=== PATIENT | female | born 1940 | race Caucasian/White ===

== ENCOUNTER 2017-03-25 12:57 | Inpatient (IN) | payer OTHER ==
[~2017-03-25] VITALS: Ht 162.6 cm; Wt 109.0 kg
[~2017-03-25 12:57] MED LIST: FUROSEMIDE20 MG PO; LEVAQUIN500 MG PO; LO-DOSE ASPIRIN81 M1 PO; MOTRIN600 MG PO; PREDNISONE10 MG PO; SYSTANE LIQUID15 ML BOTH EYES; VIBRAMYCIN100 MG PO
[2017-03-25] MEDS ORDERED: PROAIR HFA8.5 GM IH (13:46)
[2017-03-25] MEDS ORDERED: VALSARTAN-HCTZ1 EACH PO (13:46)
[2017-03-25] MEDS ORDERED: FLOVENT 22120 INHALA IH (13:47)
[2017-03-25] MEDS ORDERED: MOTRIN600 MG PO (13:50)
[2017-03-25] MEDS ORDERED: PREDNISONE10 M1 PO (13:50)
[2017-03-25] MEDS ORDERED: KEFLEX500 MG PO (13:50)
[2017-03-25 14:18] LABS: EOSINOPHIL (%) 0.6 % (0-5); EOSINOPHIL COUNT 0.1 K/uL (0-0.3); HEMATOCRIT 47.3 % (36.0-46.0); IMMATURE GRANULOCYTE (%) 0.7 % (0.0-0.7); IMMATURE GRANULOCYTE COUNT 0.1 K/uL; LYMPHOCYTE COUNT 0.3 K/uL (1.0-2.8); MCH 27.5 PG (29.0-34.0); MCHC 34.5 G/DL (30.0-36.0); MCV 79.8 FL (83-99); MEAN PLAT.VOLUME 8.6 uM^3 (9.5-12.4); MONOCYTE (%) 6.9 % (3-12); MONOCYTE COUNT 0.8 K/uL (0-0.8); NEUTROPHIL (%) 88.8 % (45-76); PLATELET COUNT 246 K/uL (156-360); RBC DIS.WIDTH-CV 13.4 % (11.8-14.6); RBC DIS.WIDTH-SD 38.9 % (39-53); RED BLOOD COUNT 5.93 M/uL (3.80-5.20); WHITE BLOOD COUNT 11.2 K/uL (4.1-10.2)
[2017-03-25 14:32] LABS: INTER. NORMALIZED RATIO 1.1
[2017-03-25 14:35] LABS: PTT 32.2 SEC (25-37)
[2017-03-25 14:44] LABS: TROP-I INTERPRETATION NEGATIVE; TROPONIN-I 0.02 ng/mL (0.0-0.30)
[2017-03-25 15:05] LABS: CHLORIDE 80 mEq/L (99-109); POTASSIUM 4.6 mEq/L (3.7-5.4); SODIUM 121 mEq/L (136-147)
[2017-03-25 15:08] LABS: GLUCOSE 103 mg/dL (70-99)
[2017-03-25 15:09] LABS: ANION GAP 12 MEQ/L (2-14)
[2017-03-25 15:10] LABS: TOTAL BILIRUBIN 1.9 mg/dL (0.0-1.0)
[2017-03-25 15:11] LABS: ALKALINE PHOSPHATASE 95 IU/L (3-129); GFR ESTIMATE (CALCULATED) > 59 mL/min/
[2017-03-25 15:13] LABS: UREA NITROGEN (BUN) 9 mg/dL (9-23)
[2017-03-25 15:15] LABS: LIPASE 6 U/L (1.0-51.0)
[2017-03-25 15:32] LABS: BASE EXCESS 3.8 mEq/L (-3 to +3); BICARBONATE 34.1 mEq/L (22-26); CARBOXY HGB 2.5 % (0-5); METHEMOGLOBIN 1.1 % (0-1.5); PCO2 76 mm Hg (35-45); PO2 92 mm Hg (80-100)
[2017-03-25 15:33] LABS: COMMENTS - BLOOD GASES A+C+; DEVICE NCH; O2 FLOW 10 L/MIN; SITE RR; TOTAL RESP RATE 16 resp/min; pH 7.26 (7.35-7.45)
[2017-03-25 16:19] LABS: ADD MIUA? YES; BILIRUBIN NEGATIVE; BLOOD SMALL; COLOR AMBER ((YELLOW)); GLUCOSE (STRIP) NEGATIVE; KETONES 80; LEUKOCYTES NEGATIVE; NITRITE NEGATIVE; PROTEIN (STRIP) >=500
[2017-03-25 16:26] LABS: BACTERIA NONE SEEN /HPF; EPITHELIAL CELLS RARE /HPF; MUCUS 4+ /LPF; RED BLOOD CELLS 0-5 /HPF (0-5); UCUL ADDED? NO; WHITE BLOOD CELLS 0-5 /HPF (0-5)
[2017-03-25 18:26] VITALS: BP 131/70
[2017-03-25 19:00] VITALS: BP 132/65
[2017-03-25 20:20] LABS: ANION GAP 8 MEQ/L (2-14); CHLORIDE 78 MEQ/L (99-109); GFR ESTIMATE (CALCULATED) > 59 mL/min/; GLUCOSE 160 mg/dL (70-99); POTASSIUM 4.5 MEQ/L (3.7-5.4); SAMPLE HEMOLYSIS CHECK 0; SAMPLE ICTERIC CHECK 0; SAMPLE LIPEMIA CHECK 0; UREA NITROGEN (BUN) 12 mg/dL (9-23)
[2017-03-25 20:21] LABS: SODIUM 116 MEQ/L (136-147)
[2017-03-25 23:37] VITALS: BP 140/61
[2017-03-26] VITALS (20 sets, daily range): BP systolic 71–166; BP diastolic 34–83
[2017-03-26 02:28] LABS: CHLORIDE 88 mEq/L (99-109); POTASSIUM 4.2 mEq/L (3.7-5.4)
[2017-03-26 02:30] LABS: GLUCOSE 127 mg/dL (70-99)
[2017-03-26 02:31] LABS: ANION GAP 9 MEQ/L (2-14)
[2017-03-26 02:34] LABS: GFR ESTIMATE (CALCULATED) > 59 mL/min/
[2017-03-26 02:35] LABS: UREA NITROGEN (BUN) 12 mg/dL (9-23)
[2017-03-26 02:36] LABS: SODIUM 123 mEq/L (136-147)
[2017-03-26 05:48] LABS: EOSINOPHIL (%) 0 % (0-5); HEMATOCRIT 45.1 % (36.0-46.0); IMMATURE GRANULOCYTE (%) 0.5 % (0.0-0.7); IMMATURE GRANULOCYTE COUNT 0.1 K/uL; INSTRUMENT ABS NEUTROPHIL CT 9.8 K/uL; LYMPHOCYTE COUNT 0.2 K/uL (1.0-2.8); MCH 28.8 PG (29.0-34.0); MCHC 35.9 G/DL (30.0-36.0); MCV 80.2 FL (83-99); MONOCYTE (%) 2.1 % (3-12); MONOCYTE COUNT 0.2 K/uL (0-0.8); NEUTROPHIL (%) 95.1 % (45-76); NEUTROPHIL COUNT 9.8 K/uL (1.8-6.4); PLATELET COUNT 244 K/uL (156-360); RBC DIS.WIDTH-CV 13.4 % (11.8-14.6); RBC DIS.WIDTH-SD 39.2 % (39-53); RED BLOOD COUNT 5.62 M/uL (3.80-5.20); WHITE BLOOD COUNT 10.3 K/uL (4.1-10.2)
[2017-03-26 06:23] LABS: ALKALINE PHOSPHATASE 91 IU/L (3-129); ANION GAP 8 MEQ/L (2-14); CHLORIDE 80 MEQ/L (99-109); DIRECT BILIRUBIN 0.5 mg/dL (0.0-0.3); GFR ESTIMATE (CALCULATED) > 59 mL/min/; GLUCOSE 126 mg/dL (70-99); POTASSIUM 4.9 MEQ/L (3.7-5.4); SAMPLE HEMOLYSIS CHECK 0; SAMPLE ICTERIC CHECK 0; SAMPLE LIPEMIA CHECK 0; TOTAL BILIRUBIN 1.3 MG/DL (0.0-1.0); UREA NITROGEN (BUN) 14 mg/dL (9-23)
[2017-03-26 06:28] LABS: SODIUM 119 MEQ/L (136-147)
[2017-03-26 08:13] LABS: INTERNAL CONTROL VALID? YES
[2017-03-26 09:07] LABS: BASE EXCESS 1.4 mEq/L (-3 to +3); BICARBONATE 36.7 mEq/L (22-26); CARBOXY HGB 1.9 % (0-5); METHEMOGLOBIN 1.3 % (0-1.5); PCO2 121 mm Hg (35-45); PO2 60 mm Hg (80-100)
[2017-03-26 09:08] LABS: COMMENTS - BLOOD GASES AC+; DEVICE NRBM; FI02 100 %; SITE RR; TOTAL RESP RATE 30 resp/min; pH 7.09 (7.35-7.45)
[2017-03-26 10:05] LABS: INTERNAL CONTROL VALID? YES
[2017-03-26 10:25] LABS: BASE EXCESS 0 mEq/L (-3 to +3); BICARBONATE 32.7 mEq/L (22-26); CARBOXY HGB 1.9 % (0-5); METHEMOGLOBIN 1.7 % (0-1.5); PCO2 94 mm Hg (35-45); PO2 88 mm Hg (80-100); pH 7.15 (7.35-7.45)
[2017-03-26 10:26] LABS: COMMENTS - BLOOD GASES NAC+; SITE RR
[2017-03-26 10:27] LABS: CONTINUOUS POS AIRWAY PRESSURE 5 cm H2O; DEVICE 980; FI02 60 %; MODE SPONT NIV; PRES. SUPPORT 20 CM/H2O; TOTAL RESP RATE 29 resp/min
[2017-03-26 10:33] LABS: ADD MIUA? YES; BILIRUBIN NEGATIVE; BLOOD NEGATIVE; COLOR YELLOW ((YELLOW)); GLUCOSE (STRIP) NEGATIVE; KETONES 5; LEUKOCYTES NEGATIVE; NITRITE NEGATIVE; PROTEIN (STRIP) 100; SPECIFIC GRAVITY 1.017 (1.000-1.030)
[2017-03-26 10:38] LABS: METH RESISTANT S AUREUS PCR NEGATIVE (NEGATIVE); PROBE CHECK PASS; SPECIMEN PROCESSING CONTROL PASS
[2017-03-26 10:44] LABS: BACTERIA NONE SEEN /HPF; EPITHELIAL CELLS RARE /HPF; MUCUS TRACE /LPF; RED BLOOD CELLS 0-5 /HPF (0-5); UCUL ADDED? NO; UNCLASSIFIED CASTS 0-5 /LPF; WHITE BLOOD CELLS 0-5 /HPF (0-5)
[2017-03-26 12:27] LABS: BICARBONATE 27.3 mEq/L (22-26); CARBOXY HGB 2.4 % (0-5); METHEMOGLOBIN 1.6 % (0-1.5)
[2017-03-26 12:28] LABS: COMMENTS - BLOOD GASES NAC+; DEVICE 980; FI02 30 %; MECHANICAL RATE 20 resp/min; MODE A/C; PCO2 44 mm Hg (35-45); PO2 70 mm Hg (80-100); SITE RR; TOTAL RESP RATE 22 resp/min
[2017-03-26 12:29] LABS: INSPIRATION TIME 0.8 seconds; PEEP 5 CM/H20; TIDAL VOLUME 450 ML
[2017-03-26 13:35] LABS: ANION GAP 12 MEQ/L (2-14); CHLORIDE 81 MEQ/L (99-109); GFR ESTIMATE (CALCULATED) > 59 mL/min/; POTASSIUM 4.8 MEQ/L (3.7-5.4); SAMPLE HEMOLYSIS CHECK 1; SAMPLE ICTERIC CHECK 0; SAMPLE LIPEMIA CHECK 0; UREA NITROGEN (BUN) 20 mg/dL (9-23)
[2017-03-26 13:37] LABS: GLUCOSE 224 mg/dL (70-99)
[2017-03-26 13:38] LABS: SODIUM 117 MEQ/L (136-147)
[2017-03-26 16:47] LABS: ANION GAP 10 MEQ/L (2-14); CHLORIDE 87 MEQ/L (99-109); GFR ESTIMATE (CALCULATED) > 59 mL/min/; GLUCOSE 161 mg/dL (70-99); SAMPLE HEMOLYSIS CHECK 0; SAMPLE ICTERIC CHECK 0; SAMPLE LIPEMIA CHECK 0; SODIUM 122 MEQ/L (136-147); UREA NITROGEN (BUN) 20 mg/dL (9-23)
[2017-03-26 20:51] LABS: ANION GAP 9 MEQ/L (2-14); CHLORIDE 89 MEQ/L (99-109); GFR ESTIMATE (CALCULATED) > 59 mL/min/; GLUCOSE 140 mg/dL (70-99); POTASSIUM 4.3 MEQ/L (3.7-5.4); SAMPLE HEMOLYSIS CHECK 0; SAMPLE ICTERIC CHECK 0; SAMPLE LIPEMIA CHECK 0; SODIUM 123 MEQ/L (136-147); UREA NITROGEN (BUN) 18 mg/dL (9-23)
[2017-03-26 23:40] LABS: CHLORIDE 90 mEq/L (99-109); POTASSIUM 4.3 mEq/L (3.7-5.4); SODIUM 123 mEq/L (136-147)
[2017-03-26 23:42] LABS: GLUCOSE 151 mg/dL (70-99)
[2017-03-26 23:44] LABS: ANION GAP 8 MEQ/L (2-14)
[2017-03-26 23:46] LABS: GFR ESTIMATE (CALCULATED) > 59 mL/min/
[2017-03-26 23:47] LABS: UREA NITROGEN (BUN) 18 mg/dL (9-23)
[2017-03-27] VITALS (23 sets, daily range): BP systolic 97–133; BP diastolic 43–70
[2017-03-27 03:02] LABS: CHLORIDE 91 mEq/L (99-109); POTASSIUM 4.5 mEq/L (3.7-5.4); SODIUM 125 mEq/L (136-147)
[2017-03-27 03:04] LABS: GLUCOSE 151 mg/dL (70-99)
[2017-03-27 03:06] LABS: ANION GAP 10 MEQ/L (2-14)
[2017-03-27 03:08] LABS: GFR ESTIMATE (CALCULATED) > 59 mL/min/
[2017-03-27 03:09] LABS: UREA NITROGEN (BUN) 18 mg/dL (9-23)
[2017-03-27 05:17] LABS: CHLORIDE 92 mEq/L (99-109); POTASSIUM 4.2 mEq/L (3.7-5.4); SODIUM 126 mEq/L (136-147)
[2017-03-27 05:18] LABS: GLUCOSE 150 mg/dL (70-99)
[2017-03-27 05:20] LABS: ANION GAP 10 MEQ/L (2-14)
[2017-03-27 05:22] LABS: GFR ESTIMATE (CALCULATED) > 59 mL/min/
[2017-03-27 05:23] LABS: UREA NITROGEN (BUN) 19 mg/dL (9-23)
[2017-03-27 09:15] LABS: ANION GAP 9 MEQ/L (2-14); CHLORIDE 93 MEQ/L (99-109); GFR ESTIMATE (CALCULATED) > 59 mL/min/; GLUCOSE 147 mg/dL (70-99); SAMPLE HEMOLYSIS CHECK 0; SAMPLE ICTERIC CHECK 0; SAMPLE LIPEMIA CHECK 0; SODIUM 125 MEQ/L (136-147); UREA NITROGEN (BUN) 19 mg/dL (9-23)
[2017-03-27 11:47] LABS: HEMATOCRIT 38.8 % (36.0-46.0); MCH 27.7 PG (29.0-34.0); MCHC 35.3 G/DL (30.0-36.0); MCV 78.4 FL (83-99); MEAN PLAT.VOLUME 9.1 uM^3 (9.5-12.4); PLATELET COUNT 176 K/uL (156-360); RBC DIS.WIDTH-CV 13.5 % (11.8-14.6); RBC DIS.WIDTH-SD 38.5 % (39-53); RED BLOOD COUNT 4.95 M/uL (3.80-5.20); WHITE BLOOD COUNT 7.7 K/uL (4.1-10.2)
[2017-03-27 13:10] LABS: ANION GAP 10 MEQ/L (2-14); CHLORIDE 92 MEQ/L (99-109); GFR ESTIMATE (CALCULATED) > 59 mL/min/; GLUCOSE 174 mg/dL (70-99); SAMPLE HEMOLYSIS CHECK 0; SAMPLE ICTERIC CHECK 0; SAMPLE LIPEMIA CHECK 0; SODIUM 125 MEQ/L (136-147); UREA NITROGEN (BUN) 19 mg/dL (9-23)
[2017-03-27 16:03] LABS: ANION GAP 6 MEQ/L (2-14); CHLORIDE 91 MEQ/L (99-109); GFR ESTIMATE (CALCULATED) > 59 mL/min/; GLUCOSE 154 mg/dL (70-99); POTASSIUM 3.8 MEQ/L (3.7-5.4); SAMPLE HEMOLYSIS CHECK 0; SAMPLE ICTERIC CHECK 0; SAMPLE LIPEMIA CHECK 0; SODIUM 124 MEQ/L (136-147); UREA NITROGEN (BUN) 18 mg/dL (9-23)
[2017-03-27 20:27] LABS: ANION GAP 9 MEQ/L (2-14); CHLORIDE 94 MEQ/L (99-109); GFR ESTIMATE (CALCULATED) > 59 mL/min/; GLUCOSE 155 mg/dL (70-99); POTASSIUM 3.8 MEQ/L (3.7-5.4); SAMPLE HEMOLYSIS CHECK 0; SAMPLE ICTERIC CHECK 0; SAMPLE LIPEMIA CHECK 0; SODIUM 127 MEQ/L (136-147); UREA NITROGEN (BUN) 18 mg/dL (9-23)
[2017-03-28] VITALS (18 sets, daily range): BP systolic 121–167; BP diastolic 59–102
[2017-03-28 00:50] LABS: CHLORIDE 96 mEq/L (99-109); SODIUM 130 mEq/L (136-147)
[2017-03-28 00:51] LABS: GLUCOSE 155 mg/dL (70-99)
[2017-03-28 00:53] LABS: ANION GAP 10 MEQ/L (2-14)
[2017-03-28 00:55] LABS: GFR ESTIMATE (CALCULATED) > 59 mL/min/
[2017-03-28 00:56] LABS: UREA NITROGEN (BUN) 16 mg/dL (9-23)
[2017-03-28 05:58] LABS: ANION GAP 9 MEQ/L (2-14); CHLORIDE 96 MEQ/L (99-109); GFR ESTIMATE (CALCULATED) > 59 mL/min/; GLUCOSE 145 mg/dL (70-99); SAMPLE HEMOLYSIS CHECK 0; SAMPLE ICTERIC CHECK 0; SAMPLE LIPEMIA CHECK 0; SODIUM 128 MEQ/L (136-147); UREA NITROGEN (BUN) 17 mg/dL (9-23)
[2017-03-28 08:43] LABS: ANION GAP 8 MEQ/L (2-14); CHLORIDE 97 MEQ/L (99-109); POTASSIUM 4.1 MEQ/L (3.7-5.4); SAMPLE HEMOLYSIS CHECK 0; SAMPLE ICTERIC CHECK 0; SAMPLE LIPEMIA CHECK 0; SODIUM 129 MEQ/L (136-147)
[2017-03-28 08:49] LABS: GFR ESTIMATE (CALCULATED) > 59 mL/min/; GLUCOSE 147 mg/dL (70-99); UREA NITROGEN (BUN) 18 mg/dL (9-23)
[2017-03-28 13:15] LABS: ANION GAP 10 MEQ/L (2-14); CHLORIDE 97 MEQ/L (99-109); SAMPLE HEMOLYSIS CHECK 0; SAMPLE ICTERIC CHECK 0; SAMPLE LIPEMIA CHECK 0; SODIUM 131 MEQ/L (136-147)
[2017-03-28 13:20] LABS: GFR ESTIMATE (CALCULATED) > 59 mL/min/; GLUCOSE 147 mg/dL (70-99); UREA NITROGEN (BUN) 17 mg/dL (9-23)
[2017-03-29] VITALS (7 sets, daily range): BP systolic 116–161; BP diastolic 49–96
[2017-03-29 06:42] LABS: HEMATOCRIT 45.3 % (36.0-46.0); MCH 28.1 PG (29.0-34.0); MCHC 33.3 G/DL (30.0-36.0); MEAN PLAT.VOLUME 8.8 uM^3 (9.5-12.4); RBC DIS.WIDTH-CV 14.2 % (11.8-14.6); RBC DIS.WIDTH-SD 43.2 % (39-53); RED BLOOD COUNT 5.37 M/uL (3.80-5.20); WHITE BLOOD COUNT 9.2 K/uL (4.1-10.2)
[2017-03-29 06:47] LABS: MCV 84.4 FL (83-99); PLATELET COUNT 231 K/uL (156-360)
[2017-03-29 07:07] LABS: ANION GAP 7 MEQ/L (2-14); CHLORIDE 101 MEQ/L (99-109); GFR ESTIMATE (CALCULATED) > 59 mL/min/; GLUCOSE 117 mg/dL (70-99); POTASSIUM 4.5 MEQ/L (3.7-5.4); SAMPLE HEMOLYSIS CHECK 0; SAMPLE ICTERIC CHECK 0; SAMPLE LIPEMIA CHECK 0; SODIUM 137 MEQ/L (136-147); UREA NITROGEN (BUN) 15 mg/dL (9-23)
[2017-03-30] VITALS (7 sets, daily range): BP systolic 136–153; BP diastolic 63–76
[2017-03-30 07:03] LABS: ANION GAP 7 MEQ/L (2-14); CHLORIDE 99 MEQ/L (99-109); GFR ESTIMATE (CALCULATED) > 59 mL/min/; GLUCOSE 114 mg/dL (70-99); POTASSIUM 4.4 MEQ/L (3.7-5.4); SAMPLE HEMOLYSIS CHECK 0; SAMPLE ICTERIC CHECK 0; SAMPLE LIPEMIA CHECK 0; SODIUM 137 MEQ/L (136-147); UREA NITROGEN (BUN) 21 mg/dL (9-23)
[2017-03-30 07:05] LABS: HEMATOCRIT 47.9 % (36.0-46.0); MCHC 32.2 G/DL (30.0-36.0); MCV 83.9 FL (83-99); MEAN PLAT.VOLUME 9.2 uM^3 (9.5-12.4); PLATELET COUNT 220 K/uL (156-360); RBC DIS.WIDTH-SD 42.8 % (39-53); RED BLOOD COUNT 5.71 M/uL (3.80-5.20); WHITE BLOOD COUNT 7.7 K/uL (4.1-10.2)
[2017-03-31] VITALS (7 sets, daily range): BP systolic 136–180; BP diastolic 63–88
[2017-03-31 05:58] LABS: POINT-OF-CARE METER ID UU14188577
[2017-03-31 06:00] LABS: MCH 27.3 PG (29.0-34.0); MCHC 32.2 G/DL (30.0-36.0); MCV 84.9 FL (83-99); MEAN PLAT.VOLUME 8.3 uM^3 (9.5-12.4); PLATELET COUNT 243 K/uL (156-360); RBC DIS.WIDTH-CV 13.7 % (11.8-14.6); RBC DIS.WIDTH-SD 42.5 % (39-53); RED BLOOD COUNT 6.01 M/uL (3.80-5.20)
[2017-03-31 06:17] LABS: CHLORIDE 95 mEq/L (99-109); SODIUM 142 mEq/L (136-147)
[2017-03-31 06:19] LABS: GLUCOSE 102 mg/dL (70-99)
[2017-03-31 06:20] LABS: ANION GAP 12 MEQ/L (2-14)
[2017-03-31 06:23] LABS: GFR ESTIMATE (CALCULATED) > 59 mL/min/
[2017-03-31 06:24] LABS: UREA NITROGEN (BUN) 27 mg/dL (9-23)
[2017-03-31 06:26] LABS: ALKALINE PHOSPHATASE 63 IU/L (3-129); POTASSIUM 3.5 mEq/L (3.7-5.4); TOTAL BILIRUBIN 1.3 mg/dL (0.0-1.0)
[2017-03-31 06:37] LABS: TROP-I INTERPRETATION NEGATIVE; TROPONIN-I 0.04 ng/mL (0.0-0.30)
[2017-03-31 06:56] LABS: INTER. NORMALIZED RATIO 1.1
[2017-03-31 06:58] LABS: PTT 32.9 SEC (25-37)
[2017-04-01 03:31] VITALS: BP 165/75
[2017-04-01 05:46] LABS: HEMATOCRIT 50.3 % (36.0-46.0); MCH 28.2 PG (29.0-34.0); MCHC 32.8 G/DL (30.0-36.0); MCV 85.8 FL (83-99); MEAN PLAT.VOLUME 8.6 uM^3 (9.5-12.4); PLATELET COUNT 193 K/uL (156-360); RBC DIS.WIDTH-CV 13.7 % (11.8-14.6); RBC DIS.WIDTH-SD 42.9 % (39-53); RED BLOOD COUNT 5.86 M/uL (3.80-5.20); WHITE BLOOD COUNT 8.6 K/uL (4.1-10.2)
[2017-04-01 06:13] LABS: ANION GAP 8 MEQ/L (2-14); CHLORIDE 95 MEQ/L (99-109); GFR ESTIMATE (CALCULATED) > 59 mL/min/; GLUCOSE 135 mg/dL (70-99); POTASSIUM 3.7 MEQ/L (3.7-5.4); SAMPLE HEMOLYSIS CHECK 0; SAMPLE ICTERIC CHECK 0; SAMPLE LIPEMIA CHECK 0; SODIUM 139 MEQ/L (136-147); UREA NITROGEN (BUN) 29 mg/dL (9-23)
[2017-04-01 07:00] VITALS: BP 143/65
[2017-04-01 11:54] VITALS: BP 138/65
[2017-04-01 15:08] VITALS: BP 149/65
[2017-04-01 20:00] VITALS: BP 143/63
[2017-04-01 23:55] VITALS: BP 158/69
[2017-04-02 04:00] VITALS: BP 156/70
[2017-04-02 07:22] VITALS: BP 150/65
[2017-04-02 11:36] VITALS: BP 145/67
[2017-04-02 15:42] VITALS: BP 128/66
[2017-04-02 19:05] VITALS: BP 143/65
[2017-04-03 00:16] VITALS: BP 141/65
[2017-04-03 04:16] VITALS: BP 136/62
[2017-04-03 05:28] LABS: EOSINOPHIL (%) 0 % (0-5); HEMATOCRIT 50.2 % (36.0-46.0); IMMATURE GRANULOCYTE COUNT 0.1 K/uL; INSTRUMENT ABS NEUTROPHIL CT 11.6 K/uL; LYMPHOCYTE COUNT 0.3 K/uL (1.0-2.8); MCHC 31.3 G/DL (30.0-36.0); MCV 86.3 FL (83-99); MEAN PLAT.VOLUME 8.8 uM^3 (9.5-12.4); MONOCYTE (%) 3.4 % (3-12); MONOCYTE COUNT 0.4 K/uL (0-0.8); NEUTROPHIL (%) 92.9 % (45-76); NEUTROPHIL COUNT 11.6 K/uL (1.8-6.4); PLATELET COUNT 191 K/uL (156-360); RBC DIS.WIDTH-CV 13.3 % (11.8-14.6); RBC DIS.WIDTH-SD 41.8 % (39-53); RED BLOOD COUNT 5.82 M/uL (3.80-5.20); WHITE BLOOD COUNT 12.5 K/uL (4.1-10.2)
[2017-04-03 05:50] LABS: ANION GAP 5 MEQ/L (2-14); CHLORIDE 99 MEQ/L (99-109); GFR ESTIMATE (CALCULATED) > 59 mL/min/; GLUCOSE 150 mg/dL (70-99); POTASSIUM 4.1 MEQ/L (3.7-5.4); SAMPLE HEMOLYSIS CHECK 0; SAMPLE ICTERIC CHECK 0; SAMPLE LIPEMIA CHECK 0; SODIUM 141 MEQ/L (136-147); UREA NITROGEN (BUN) 34 mg/dL (9-23)
[2017-04-03 08:45] VITALS: BP 143/63
[2017-04-03 12:30] VITALS: BP 152/68
[2017-04-03 16:00] VITALS: BP 164/72
[2017-04-03 20:00] VITALS: BP 149/74
[2017-04-04 00:03] VITALS: BP 162/67
[2017-04-04 04:19] VITALS: BP 170/73
[2017-04-04 07:44] VITALS: BP 173/74
[2017-04-04 09:15] LABS: EOSINOPHIL (%) 0 % (0-5); HEMATOCRIT 53.3 % (36.0-46.0); IMMATURE GRANULOCYTE (%) 1.1 % (0.0-0.7); IMMATURE GRANULOCYTE COUNT 0.1 K/uL; INSTRUMENT ABS NEUTROPHIL CT 5.7 K/uL; LYMPHOCYTE COUNT 0.3 K/uL (1.0-2.8); MCH 28.2 PG (29.0-34.0); MCHC 32.3 G/DL (30.0-36.0); MCV 87.2 FL (83-99); MEAN PLAT.VOLUME 8.8 uM^3 (9.5-12.4); MONOCYTE (%) 6.3 % (3-12); MONOCYTE COUNT 0.4 K/uL (0-0.8); NEUTROPHIL (%) 88.6 % (45-76); NEUTROPHIL COUNT 5.7 K/uL (1.8-6.4); PLATELET COUNT 162 K/uL (156-360); RBC DIS.WIDTH-CV 13.4 % (11.8-14.6); RBC DIS.WIDTH-SD 43.1 % (39-53); RED BLOOD COUNT 6.11 M/uL (3.80-5.20); WHITE BLOOD COUNT 6.5 K/uL (4.1-10.2)
[2017-04-04 09:40] LABS: ANION GAP 4 MEQ/L (2-14); CHLORIDE 102 MEQ/L (99-109); GFR ESTIMATE (CALCULATED) > 59 mL/min/; GLUCOSE 140 mg/dL (70-99); SAMPLE HEMOLYSIS CHECK 0; SAMPLE ICTERIC CHECK 0; SAMPLE LIPEMIA CHECK 0; SODIUM 145 MEQ/L (136-147); UREA NITROGEN (BUN) 39 mg/dL (9-23)
[2017-04-04 11:50] VITALS: BP 144/72
[2017-04-04 19:00] VITALS: BP 172/73
[2017-04-04 23:00] VITALS: BP 166/72
[2017-04-05 03:30] VITALS: BP 184/73
[2017-04-05 05:25] VITALS: BP 162/72
[2017-04-05 07:15] VITALS: BP 177/77
[2017-04-05 09:22] LABS: EOSINOPHIL (%) 0.1 % (0-5); HEMATOCRIT 52.3 % (36.0-46.0); IMMATURE GRANULOCYTE (%) 0.7 % (0.0-0.7); IMMATURE GRANULOCYTE COUNT 0.1 K/uL; INSTRUMENT ABS NEUTROPHIL CT 7.7 K/uL; LYMPHOCYTE COUNT 0.4 K/uL (1.0-2.8); MCH 26.9 PG (29.0-34.0); MCHC 30.8 G/DL (30.0-36.0); MCV 87.5 FL (83-99); MEAN PLAT.VOLUME 8.9 uM^3 (9.5-12.4); MONOCYTE (%) 8.5 % (3-12); MONOCYTE COUNT 0.8 K/uL (0-0.8); NEUTROPHIL (%) 86.1 % (45-76); NEUTROPHIL COUNT 7.7 K/uL (1.8-6.4); PLATELET COUNT 146 K/uL (156-360); RBC DIS.WIDTH-CV 13.2 % (11.8-14.6); RBC DIS.WIDTH-SD 42.5 % (39-53); RED BLOOD COUNT 5.98 M/uL (3.80-5.20)
[2017-04-05 09:44] VITALS: BP 141/65
[2017-04-05] MEDS ORDERED: PREDNISONE5 MG PO (10:50)
[2017-04-05] MEDS ORDERED: CARDIZEM CD120 M1 PO (10:50)
[2017-04-05] MEDS ORDERED: AMOX TR-K CLV1 EAC4 PO (10:50)
[2017-04-05] MEDS ORDERED: LISINOPRIL10 MG PO (10:50)
[2017-04-05 12:36] VITALS: BP 136/62
[2017-04-05 15:35] VITALS: BP 166/71
== END 2017-04-05 16:10 | disposition home health service (06) | DRG 166 ==
LOC: EME → EDBD 12:57 → EDOF 15:34 → 4WEST 15:34 → 4EAST 15:34 → ENRESERV 15:36 → EDOF 16:53 → ENRESERV 16:54 → 4EAST 17:36 → 4WEST 03-26 09:20 → ENRESERV 03-26 09:27 → 4WEST 03-28 15:15 → ENRESERV 03-29 13:21 → 3EAST 03-29 15:25 → ENRESERV 03-31 05:46 → 4EAST 03-31 06:07 → ENRESERV 03-31 06:08 → 4EAST 03-31 06:08
PROVIDERS: Emergency Medicine; Hospitalist; Internal Medicine; Internal Medicine Critical Care Medicine; Internal Medicine Nephrology; Internal Medicine Pulmonary Disease
PROC: 5A1945Z Respiratory Ventilation, 24-96 Consecutive Hours (ICD-10-PCS; principal; 2017-03-26)
PROC: 0BH17EZ Insertion of Endotracheal Airway into Trachea, Via Natural or Artificial Opening (ICD-10-PCS; principal; 2017-03-26)
PROC: 0BBF8ZX Excision of Right Lower Lung Lobe, Via Natural or Artificial Opening Endoscopic, Diagnostic (ICD-10-PCS; principal; 2017-03-26)
DX: J69.0 Pneumonitis due to inhalation of food and vomit (principal); J96.01 Acute respiratory failure with hypoxia; J96.02 Acute respiratory failure with hypercapnia; J44.9 Chronic obstructive pulmonary disease, unspecified; J45.41 Moderate persistent asthma with (acute) exacerbation; E87.1 Hypo-osmolality and hyponatremia; E86.0 Dehydration; T50.2X5A Adverse effect of carbonic-anhydrase inhibitors, benzothiadiazides and other diuretics, initial encounter; I48.0 Paroxysmal atrial fibrillation; I11.0 Hypertensive heart disease with heart failure; I50.32 Chronic diastolic (congestive) heart failure; I08.3 Combined rheumatic disorders of mitral, aortic and tricuspid valves; E87.2 Acidosis; D72.829 Elevated white blood cell count, unspecified; T38.0X5A Adverse effect of glucocorticoids and synthetic analogues, initial encounter; K21.9 Gastro-esophageal reflux disease without esophagitis; E78.5 Hyperlipidemia, unspecified; E66.9 Obesity, unspecified; Z68.36 Body mass index [BMI] 36.0-36.9, adult; E55.9 Vitamin D deficiency, unspecified; M19.90 Unspecified osteoarthritis, unspecified site; Z85.3 Personal history of malignant neoplasm of breast; Z90.12 Acquired absence of left breast and nipple; Z90.710 Acquired absence of both cervix and uterus; Z77.22 Contact with and (suspected) exposure to environmental tobacco smoke (acute) (chronic); Z91.040 Latex allergy status
CPT/HCPCS: 36600; 71010; 71020; 71275; 74230; 80048; 80048 91; 80053; 80069; 80076; 81003; 82803; 82948; 83605; 83690; 83880; 83930; 83935; 84300; 84484; 85025; 85027; 85610; 85730; 87040; 87070; 87205; 87449; 87641; 88108; 88305; 92526 GN; 92610 GN; 92611 GN; 93005; 93306; 94002; 94003; 94640; 94640 76; 94667; 94668; 94799; 97530 GO; 97530 GP; 99202; 99281; 99285; J0456; J0696; J1160; J1650; J1940; J2250; J2270; J2543; J2920; J2930; J7030; J7040; J7050; J7512; S0028

== ENCOUNTER 2017-04-24 14:08 | Emergency (ER) | payer OTHER ==
[~2017-04-24] VITALS: Ht 162.6 cm; Wt 96.7 kg
[~2017-04-24 14:08] MED LIST changes: +AMOX TR-K CLV1 EAC4 PO; +CARDIZEM CD120 M1 PO; +FLOVENT 22120 INHALA IH; +KEFLEX500 MG PO; +LISINOPRIL10 MG PO; +PREDNISONE10 M1 PO; +PREDNISONE5 MG PO; +PROAIR HFA8.5 GM IH; +VALSARTAN-HCTZ1 EACH PO
[2017-04-24 15:33] LABS: EOSINOPHIL COUNT 0.2 K/uL (0-0.3); HEMATOCRIT 37.8 % (36.0-46.0); IMMATURE GRANULOCYTE (%) 0.7 % (0.0-0.7); INSTRUMENT ABS NEUTROPHIL CT 4.5 K/uL; LYMPHOCYTE COUNT 0.2 K/uL (1.0-2.8); MCH 27.2 PG (29.0-34.0); MCHC 31.2 G/DL (30.0-36.0); MCV 87.1 FL (83-99); MEAN PLAT.VOLUME 8.7 uM^3 (9.5-12.4); MONOCYTE (%) 9.6 % (3-12); MONOCYTE COUNT 0.5 K/uL (0-0.8); NEUTROPHIL (%) 82.3 % (45-76); NEUTROPHIL COUNT 4.5 K/uL (1.8-6.4); RBC DIS.WIDTH-CV 15.8 % (11.8-14.6); RBC DIS.WIDTH-SD 49.5 % (39-53); WHITE BLOOD COUNT 5.4 K/uL (4.1-10.2)
[2017-04-24 15:55] LABS: CHLORIDE 94 mEq/L (99-109); POTASSIUM 4.4 mEq/L (3.7-5.4); SODIUM 139 mEq/L (136-147)
[2017-04-24 15:57] LABS: GLUCOSE 109 mg/dL (70-99)
[2017-04-24 15:58] LABS: ANION GAP 10 MEQ/L (2-14)
[2017-04-24 16:01] LABS: GFR ESTIMATE (CALCULATED) > 59 mL/min/
[2017-04-24 16:02] LABS: TROP-I INTERPRETATION NEGATIVE; TROPONIN-I < 0.01 ng/mL (0.0-0.30); UREA NITROGEN (BUN) 10 mg/dL (9-23)
[2017-04-24 16:49] LABS: PLATELET COUNT 421 K/uL (156-360); RED BLOOD COUNT 4.34 M/uL (3.80-5.20)
[2017-04-24] MEDS ORDERED: AUGMENTIN875 MG PO (17:17)
[2017-04-24 17:42] VITALS: BP 133/55
== END 2017-04-24 19:15 | disposition home or self-care (01) ==
LOC: EME 14:08
PROVIDERS: Emergency Medicine
DX: L03.115 Cellulitis of right lower limb (principal); L03.116 Cellulitis of left lower limb; J44.9 Chronic obstructive pulmonary disease, unspecified; E78.5 Hyperlipidemia, unspecified; Z85.3 Personal history of malignant neoplasm of breast
CPT/HCPCS: 71010; 80048; 83880; 84484; 85025; 93005; 99281; 99283

== ENCOUNTER 2017-04-28 14:54 | Inpatient (IN) | payer OTHER ==
[~2017-04-28] VITALS: Ht 162.6 cm; Wt 91.3 kg
[~2017-04-28 14:54] MED LIST changes: +AUGMENTIN875 MG PO
[2017-04-28 16:05] LABS: EOSINOPHIL (%) 1.6 % (0-5); EOSINOPHIL COUNT 0.1 K/uL (0-0.3); HEMATOCRIT 38.1 % (36.0-46.0); IMMATURE GRANULOCYTE (%) 1.4 % (0.0-0.7); IMMATURE GRANULOCYTE COUNT 0.1 K/uL; INSTRUMENT ABS NEUTROPHIL CT 6.9 K/uL; LYMPHOCYTE COUNT 0.3 K/uL (1.0-2.8); MCH 27.4 PG (29.0-34.0); MCV 88.6 FL (83-99); MEAN PLAT.VOLUME 8.5 uM^3 (9.5-12.4); MONOCYTE COUNT 0.6 K/uL (0-0.8); NEUTROPHIL (%) 86.6 % (45-76); NEUTROPHIL COUNT 6.9 K/uL (1.8-6.4); PLATELET COUNT 345 K/uL (156-360); RBC DIS.WIDTH-CV 16.8 % (11.8-14.6); RBC DIS.WIDTH-SD 53.9 % (39-53)
[2017-04-28 16:20] LABS: CHLORIDE 95 mEq/L (99-109); POTASSIUM 4.2 mEq/L (3.7-5.4); SODIUM 137 mEq/L (136-147)
[2017-04-28 16:21] LABS: GLUCOSE 114 mg/dL (70-99)
[2017-04-28 16:23] LABS: ANION GAP 7 MEQ/L (2-14)
[2017-04-28 16:25] LABS: GFR ESTIMATE (CALCULATED) > 59 mL/min/
[2017-04-28 16:26] LABS: UREA NITROGEN (BUN) 10 mg/dL (9-23)
[2017-04-28 16:32] LABS: TROP-I INTERPRETATION NEGATIVE; TROPONIN-I 0.03 ng/mL (0.0-0.30)
[2017-04-28 19:32] LABS: TOTAL BILIRUBIN 0.7 mg/dL (0.0-1.0)
[2017-04-28 19:33] LABS: ALKALINE PHOSPHATASE 84 IU/L (3-129)
[2017-04-28 19:34] LABS: BASE EXCESS 20.8 mEq/L (-3 to +3); BICARBONATE 49.3 mEq/L (22-26); CARBOXY HGB 2.4 % (0-5); PO2 57 mm Hg (80-100); pH 7.42 (7.35-7.45)
[2017-04-28 19:35] LABS: COMMENTS - BLOOD GASES A+C+; DEVICE NC; O2 FLOW 2 L/MIN; PCO2 76 mm Hg (35-45); SITE RR; TOTAL RESP RATE 20 resp/min
[2017-04-28 19:36] LABS: DIRECT BILIRUBIN 0.4 mg/dL (0.0-0.3)
[2017-04-28] MEDS ORDERED: CARDIZEM CD120 M1 PO (20:53)
[2017-04-28] MEDS ORDERED: AUGMENTIN875 MG PO (20:53)
[2017-04-28] MEDS ORDERED: VITAMIN D31000 UNIT PO (20:54)
[2017-04-28 21:33] VITALS: BP 144/63
[2017-04-28 22:59] LABS: TROP-I INTERPRETATION NEGATIVE; TROPONIN-I 0.03 ng/mL (0.0-0.30)
[2017-04-29] VITALS (8 sets, daily range): BP systolic 97–135; BP diastolic 51–61
[2017-04-29 07:19] LABS: HEMATOCRIT 36.1 % (36.0-46.0); MCH 28.3 PG (29.0-34.0); MCHC 31.6 G/DL (30.0-36.0); MCV 89.6 FL (83-99); MEAN PLAT.VOLUME 8.9 uM^3 (9.5-12.4); PLATELET COUNT 350 K/uL (156-360); RBC DIS.WIDTH-CV 17.1 % (11.8-14.6); RED BLOOD COUNT 4.03 M/uL (3.80-5.20); WHITE BLOOD COUNT 6.6 K/uL (4.1-10.2)
[2017-04-29 07:45] LABS: ANION GAP ND MEQ/L (2-14); CHLORIDE 92 MEQ/L (99-109); GFR ESTIMATE (CALCULATED) > 59 mL/min/; GLUCOSE 99 mg/dL (70-99); POTASSIUM 3.9 MEQ/L (3.7-5.4); SAMPLE HEMOLYSIS CHECK 0; SAMPLE ICTERIC CHECK 0; SAMPLE LIPEMIA CHECK 0; SODIUM 142 MEQ/L (136-147); TROP-I INTERPRETATION NEGATIVE; TROPONIN-I 0.02 ng/mL (0.0-0.30); UREA NITROGEN (BUN) 9 mg/dL (9-23)
[2017-04-29 07:47] LABS: CARBON DIOXIDE (BICARBONATE) > 40.0 MEQ/L (20-31)
[2017-04-29 10:43] LABS: VENOUS PCO2 93 mm Hg (41-51)
[2017-04-29 10:44] LABS: CARBON DIOXIDE (BICARBONATE) > 40.0 MEQ/L (20-31)
[2017-04-29 11:19] LABS: BASE EXCESS 23.6 mEq/L (-3 to +3); BICARBONATE 52.5 mEq/L (22-26); CARBOXY HGB 2.4 % (0-5); METHEMOGLOBIN 1.8 % (0-1.5); pH 7.42 (7.35-7.45)
[2017-04-29 11:20] LABS: COMMENTS - BLOOD GASES A+C+; DEVICE NC; O2 FLOW 2 L/MIN; PCO2 81 mm Hg (35-45); PO2 72 mm Hg (80-100); SITE RR
[2017-04-30 03:20] VITALS: BP 117/56
[2017-04-30 06:50] VITALS: BP 123/58
[2017-04-30 08:31] LABS: ANION GAP ND MEQ/L (2-14); CHLORIDE 88 MEQ/L (99-109); GFR ESTIMATE (CALCULATED) > 59 mL/min/; GLUCOSE 100 mg/dL (70-99); POTASSIUM 4.4 MEQ/L (3.7-5.4); SAMPLE HEMOLYSIS CHECK 0; SAMPLE ICTERIC CHECK 0; SAMPLE LIPEMIA CHECK 0; SODIUM 140 MEQ/L (136-147); UREA NITROGEN (BUN) 12 mg/dL (9-23)
[2017-04-30 08:32] LABS: CARBON DIOXIDE (BICARBONATE) > 40.0 MEQ/L (20-31)
[2017-04-30 11:24] VITALS: BP 108/53
[2017-04-30 19:44] VITALS: BP 104/50
[2017-05-01] VITALS (7 sets, daily range): BP systolic 102–114; BP diastolic 52–88
[2017-05-01 08:56] LABS: ANION GAP ND MEQ/L (2-14); CHLORIDE 90 MEQ/L (99-109); GFR ESTIMATE (CALCULATED) > 59 mL/min/; GLUCOSE 103 mg/dL (70-99); POTASSIUM 4.4 MEQ/L (3.7-5.4); SAMPLE HEMOLYSIS CHECK 0; SAMPLE ICTERIC CHECK 0; SAMPLE LIPEMIA CHECK 0; SODIUM 138 MEQ/L (136-147); UREA NITROGEN (BUN) 19 mg/dL (9-23)
[2017-05-01 08:57] LABS: CARBON DIOXIDE (BICARBONATE) > 40.0 MEQ/L (20-31)
[2017-05-02 00:49] VITALS: BP 110/52
[2017-05-02 05:21] VITALS: BP 130/60
[2017-05-02 05:32] LABS: EOSINOPHIL (%) 1.7 % (0-5); EOSINOPHIL COUNT 0.1 K/uL (0-0.3); HEMATOCRIT 35.4 % (36.0-46.0); IMMATURE GRANULOCYTE (%) 0.8 % (0.0-0.7); IMMATURE GRANULOCYTE COUNT 0.1 K/uL; INSTRUMENT ABS NEUTROPHIL CT 5.4 K/uL; LYMPHOCYTE COUNT 0.4 K/uL (1.0-2.8); MCH 27.4 PG (29.0-34.0); MCHC 30.8 G/DL (30.0-36.0); MCV 88.9 FL (83-99); MEAN PLAT.VOLUME 9.1 uM^3 (9.5-12.4); MONOCYTE COUNT 0.5 K/uL (0-0.8); NEUTROPHIL (%) 83.1 % (45-76); NEUTROPHIL COUNT 5.4 K/uL (1.8-6.4); PLATELET COUNT 249 K/uL (156-360); RBC DIS.WIDTH-CV 17.4 % (11.8-14.6); RED BLOOD COUNT 3.98 M/uL (3.80-5.20); WHITE BLOOD COUNT 6.5 K/uL (4.1-10.2)
[2017-05-02 06:09] LABS: ANION GAP ND MEQ/L (2-14); CHLORIDE 93 MEQ/L (99-109); GFR ESTIMATE (CALCULATED) > 59 mL/min/; GLUCOSE 99 mg/dL (70-99); POTASSIUM 4.3 MEQ/L (3.7-5.4); SAMPLE HEMOLYSIS CHECK 0; SAMPLE ICTERIC CHECK 0; SAMPLE LIPEMIA CHECK 0; SODIUM 139 MEQ/L (136-147); UREA NITROGEN (BUN) 20 mg/dL (9-23)
[2017-05-02 07:30] VITALS: BP 99/48
[2017-05-02 11:00] VITALS: BP 118/58
[2017-05-02 11:30] VITALS: BP 118/58
[2017-05-02] MEDS ORDERED: LISINOPRIL5 MG PO (12:07)
[2017-05-02] MEDS ORDERED: CARVEDILOL3.125 MG PO (12:07)
== END 2017-05-02 14:01 | disposition short-term general hospital (02) | DRG 292 ==
LOC: EME 14:54 → 4EAST 18:12 → EDOF 18:12 → ENRESERV 18:13 → 4EAST 21:06
PROVIDERS: Emergency Medicine; Hospitalist
DX: I11.0 Hypertensive heart disease with heart failure (principal); I50.33 Acute on chronic diastolic (congestive) heart failure; L03.116 Cellulitis of left lower limb; E66.01 Morbid (severe) obesity due to excess calories; Z68.35 Body mass index [BMI] 35.0-35.9, adult; I48.0 Paroxysmal atrial fibrillation; E87.1 Hypo-osmolality and hyponatremia; E78.5 Hyperlipidemia, unspecified; I35.0 Nonrheumatic aortic (valve) stenosis; M19.90 Unspecified osteoarthritis, unspecified site; K21.9 Gastro-esophageal reflux disease without esophagitis; L89.90 Pressure ulcer of unspecified site, unspecified stage; J44.9 Chronic obstructive pulmonary disease, unspecified; Z99.81 Dependence on supplemental oxygen
CPT/HCPCS: 36600; 71010; 80048; 80076; 82803; 83605; 83880; 84484; 85025; 85027; 87040; 93005; 93970; 94799; 99281; 99285; J0690; J1644; J1940